=== PATIENT | female | born 1965 | race Caucasian/White ===

== ENCOUNTER 2020-04-23 08:18 | Emergency (ER) | payer BC, OTHER ==
[~2020-04-23] VITALS: Ht 152.4 cm; Wt 62.3 kg
[2020-04-23 08:58] LABS: BASOPHILS % (AUTO) 0 % (0-1); EOSINOPHILS % (AUTO) 1 % (1-7); LYMPHOCYTES % (AUTO) 13 % (22-44); MEAN CORPUSCULAR HEMOGLOBIN 29.8 pg (27.0-34.8); MEAN CORPUSCULAR HGB CONC 32.9 g/dL (32.4-35.8); MEAN PLATELET VOLUME 7.6 fL (7.4-10.4); MONOCYTES % (AUTO) 6 % (2-9); NEUTROPHILS % (AUTO) 80 % (42-75); PLATELET COUNT 248 x10^3/uL (130-400); RED BLOOD COUNT 5.18 x10^6/uL (3.82-5.3); RED CELL DISTRIBUTION WIDTH 12.6 % (9.6-15.2)
[2020-04-23 09:11] LABS: ALANINE AMINOTRANSFERASE 21 U/L (12-78); ALBUMIN 4.2 g/dL (3.4-5.0); ANION GAP 6 mmol/L (5-15); CALCIUM 9.6 mg/dL (8.5-10.1); CHLORIDE 103 mmol/L (98-107); CREATININE 0.66 mg/dL (0.55-1.02)
[2020-04-23 09:14] LABS: SALICYLATE LEVEL < 1.7 mg/dL (2.8-20.0)
[2020-04-23 09:15] LABS: ALKALINE PHOSPHATASE 94 U/L (45-117); BILIRUBIN,TOTAL 0.5 mg/dL (0.2-1.0); TOTAL PROTEIN 7.6 g/dL (6.4-8.2); TROPONIN I < 0.015 ng/mL (0.000-0.045)
[2020-04-23 09:19] LABS: AMPHETAMINE SCREEN, URINE Negative (Negative); BARBITURATE SCREEN, URINE Negative (Negative); BENZODIAZEPINE SCREEN, URINE Negative (Negative); CANNABINOID SCREEN, URINE Negative (Negative); COCAINE SCREEN, URINE Negative (Negative); METHADONE SCREEN, URINE Negative (Negative); OPIATE SCREEN, URINE Negative (Negative)
[2020-04-23 09:23] LABS: MD SCAN
[2020-04-23] MEDS ORDERED: HYDR25TA6 PO (15:23)
[2020-04-23] MEDS ORDERED: MELO7.5T31 PO ×3 (15:23→15:24)
[2020-04-23] MEDS ORDERED: LISI5TAB7 PO (15:23)
[2020-04-23] MEDS ORDERED: TRAM50TA2 PO (15:23)
[2020-04-23] MEDS ORDERED: LISINOPRIL 5 MG TABLET PO SCH (21:00)
[2020-04-23] MEDS ORDERED: LISINOPRIL 5 MG TABLET ONE (21:11)
[2020-04-23] MEDS: MELOXICAM 15 MG TABLET PO SCH (21:39)
[2020-04-24 08:36] VITALS: BP 117/82
[2020-04-24] MEDS ORDERED: HYDROCHLOROTHIAZIDE 25 MG TABLET PO SCH (09:00)
[2020-04-24] MEDS: MELOXICAM 15 MG TABLET PO SCH (10:50)
== END 2020-04-24 19:25 ==
LOC: ED 09:04
DX: R45.851 Suicidal ideations (principal)
CPT/HCPCS: 36415; 80053; 80307; 84484; 85025; 99285